=== PATIENT | male | born 1985 | race African-American/Black ===

== ENCOUNTER 2021-11-16 18:07 | Emergency (ER) | payer OTHER ==
[~2021-11-16] VITALS: Ht 182.9 cm; Wt 131.5 kg
--- NOTE | 2021-11-16 18:10 | NUR ---
Patient triaged and placed in waiting room. VSS and patient appears in no acute distress at this time. Accompanied by self , awaiting available bed, and MD notified of need for MSE.
--- NOTE | 2021-11-16 18:12 | NUR ---
Note nikia in EDM - 11/16/21 at 2117 by [email or web address] Pt brought by self, A&Ox4, pt presents to ER with discomfort on throat after eating pozole, pt denies any symptoms at this time, states he took benadryl prior EMS arrival, skin pink and warm, cap refill <3.
[2021-11-16 18:16] VITALS: BP_SYST 139
--- NOTE | 2021-11-16 18:36 | NUR ---
Pt placed in the waiting room, pt denies any symptoms, pt on stable condition
--- NOTE | 2021-11-16 18:40 | NUR ---
Pt brought by self, A&Ox4, pt presents to ER with discomfort on throat after eating pozole, pt denies any symptoms at this time, states he took benadryl prior EMS arrival, skin pink and warm, cap refill <3.
--- NOTE | 2021-11-16 19:50 | NUR ---
Dr Ashley evaluating patient in the triage room
[2021-11-16] MEDS ORDERED: DECADRON 4 MG TABLET PO ONE (20:00)
[2021-11-16] MEDS ORDERED: DIPHENHYDRAMINE HCL 50 MG CAPSULE PO ONE (20:00)
[2021-11-16] MEDS ORDERED: FAMOTIDINE 20 MG TABLET PO ONE (20:00)
--- NOTE | 2021-11-16 21:55 | NUR ---
MEDICATED PER MD ORDERS.
[2021-11-16] MEDS ORDERED: FAMO40TA7 PO (22:47)
[2021-11-16] MEDS ORDERED: DIPH25CA83 PO (22:47)
[2021-11-16] MEDS ORDERED: EPIN0.3P3 IM (22:47)
[2021-11-16] MEDS ORDERED: DEXA4TAB PO (22:47)
[2021-11-16 22:58] VITALS: BP_SYST 126
--- NOTE | 2021-11-16 22:58 | NUR ---
Patient given written and verbal discharge instructions and verbalizes understanding. ER MD discussed with patient the results and treatment provided. Patient in stable condition. ID arm band removed. Rx of DEXAMETHASONE, BENADRYL, EPIPEN AND FAMOTIDINE given. Patient educated on pain management and to follow up with PMD. Pain Scale 0/10 Opportunity for questions provided and answered. Medication side effect fact sheet provided.
== END 2021-11-16 22:58 | disposition home or self-care (01) ==
LOC: SED 18:07
DX: J02.9 Acute pharyngitis, unspecified (principal); Z88.0 Allergy status to penicillin; Z79.899 Other long term (current) drug therapy
CPT/HCPCS: 70360; 71045; 99284; J8540; Q0163